=== PATIENT | female | born 1980 | race American Indian/Alaskan Native ===

== ENCOUNTER 2017-07-05 17:10 | Emergency (ER) | payer SELFPAY ==
[2017-07-05 17:30] VITALS: BP 138/57
== END 2017-07-05 20:35 | disposition left against medical advice (07) ==
LOC: ED 17:10
DX: R07.89 Other chest pain (principal); Z53.21 Procedure and treatment not carried out due to patient leaving prior to being seen by health care provider
CPT/HCPCS: 93005; 93010

== ENCOUNTER 2019-11-30 14:39 | Emergency (ER) | payer MEDICAID ==
[2019-11-30 15:05] VITALS: BP 149/89
[2019-11-30] MEDS ORDERED: ONDANSETRON 4 MG/2 ML INJ IV ONE (15:27)
[2019-11-30] MEDS ORDERED: SODIUM CHLORIDE 0.9% 1000 ML 1,000 ML IV ONE (15:27)
[2019-11-30] MEDS ORDERED: MORPHINE 4 MG/1 ML INJ IV ONE (15:27)
[2019-11-30 15:57] LABS: Basophils # (Auto) 0.1 K/mm3 (0.0-0.1); Basophils % (Auto) 0.7 % (0.0-1.8); Eosinophils # (Auto) 0.3 K/mm3 (0.0-0.4); Eosinophils % (Auto) 2.2 % (0.0-4.3); Hematocrit 36.1 % (30.3-42.9); Hemoglobin 11.4 gm/dl (10.1-14.3); Lymphocytes # (Auto) 2.4 K/mm3 (1.2-5.4); Lymphocytes % (Auto) 20.9 % (13.4-35.0); Mean Corpuscular HGB Conc 32 % (30-34); Mean Corpuscular Volume 86 fl (79-97); Monocytes # (Auto) 0.7 K/mm3 (0.0-0.8); Platelet Count 319 K/mm3 (140-440); Red Cell Distribution Width 14.8 % (13.2-15.2)
[2019-11-30 16:13] LABS: Alanine Aminotransferase 20 units/L (7-56); Albumin 3.5 g/dL (3.9-5); BUN/Creatinine Ratio 17; Blood Urea Nitrogen 12 mg/dL (7-17); Calcium 9.1 mg/dL (8.4-10.2); Hemolysis Index 3
[2019-11-30 16:58] LABS: Bacteria,Urine 1+ /HPF (Negative); Bilirubin,Urine NEG (Negative); Blood,Urine NEG (Negative); Color,Urine Yellow (Yellow); Mucus,Urine FEW /HPF; Protein,Urine <15 mg/dL mg/dL (Negative)
--- NOTE | 2019-11-30 17:05 | Emergency Department Report ---
ED Abdominal Pain HPI - General Chief Complaint: Abdominal Pain Stated Complaint: SOB/MID STOMACH PAIN Time Seen by Provider: 11/30/19 15:26 Source: patient Mode of arrival: Ambulatory Limitations: No Limitations - History of Present Illness Initial Comments: Patient is a 39-year-old female presents emergency room with complaints of upper abdominal pain that began earlier this morning. She states that she has associated nausea and had one episode of vomiting. She denies any diarrhea, fever, urinary symptoms, shortness of breath, chest pain, diaphoresis, radiation of the pain. She has a past medical history of hypertension. She denies any allergies to medications. She states her last menstrual cycle was last week. Severity scale (0 -10): 2 - Related Data Previous Rx's Medication Instructions Recorded Last Taken Type Digoxin 125 mcg PO DAILY #30 tablet 12/31/13 Unknown Rx Pnv95/Ferrous Fumarate/FA 1 each PO DAILY #30 tablet 12/31/13 Unknown Rx [ Multivitamins Tablet] Ferrous Sulfate [Feosol 325 MG tab] 325 mg PO BID #30 tablet 04/21/14 Unknown Rx HYDROcodone/APAP 5-325 [[place] 2 each PO Q6H PRN #20 tablet 04/21/14 Unknown Rx 5-325 mg TAB] Ibuprofen [Motrin 600 MG tab] 600 mg PO Q6H #30 tablet 04/21/14 Unknown Rx Nitrofurantoin Howell/M-Cryst 100 mg PO Q12HR #20 capsule 04/01/15 Unknown Rx [Macrobid CAP] Ondansetron [Zofran Odt] 4 mg PO Q4H #20 tab.rapdis 04/01/15 Unknown Rx Vit-Fe Fumar-FA [ 1 each PO QDAY #30 tablet 04/01/15 Unknown Rx Vitamin] Prednisone [predniSONE 10 mg 10 mg PO .TAPER #1 tab.ds.pk 08/27/19 Unknown Rx (6-Day Pack, 21 Tabs)] Famotidine [Pepcid] 20 mg PO BID #60 tablet 11/30/19 Unknown Rx Hyoscyamine Subl [Levsin Sl 0.125 0.125 mg SL Q6HR PRN #7 tab 11/30/19 Unknown Rx TAB] Allergies Allergy/AdvReac Type Severity Reaction Status Date / Time No Known Allergies Allergy Verified 04/20/14 09:11 ED Review of Systems ROS: Stated complaint: SOB/MID STOMACH PAIN Other details as noted in HPI Comment: All other systems reviewed and negative ED Past Medical Hx - Past Medical History Previous Medical History?: No Hx Hypertension: No Hx Congestive Heart Failure: No Hx Diabetes: No Hx Deep Vein Thrombosis: No Hx Renal Disease: No Hx Sickle Cell Disease: No Hx Seizures: No Hx Asthma: No Hx COPD: No Hx HIV: No - Surgical History Past Surgical History?: Yes Additional Surgical History: C section last year - Social History Smoking Status: Never Smoker Substance Use Type: None - Medications Home Medications: Home Medications Medication Instructions Recorded Confirmed Last Taken Type Digoxin 125 mcg PO DAILY #30 tablet 12/31/13 04/20/14 Unknown Rx Pnv95/Ferrous Fumarate/FA 1 each PO DAILY #30 tablet 12/31/13 04/20/14 Unknown Rx [ Multivitamins Tablet] Ferrous Sulfate [Feosol 325 MG tab] 325 mg PO BID #30 tablet 04/21/14 Unknown Rx HYDROcodone/APAP 5-325 [[place] 2 each PO Q6H PRN #20 tablet 04/21/14 Unknown Rx 5-325 mg TAB] Ibuprofen [Motrin 600 MG tab] 600 mg PO Q6H #30 tablet 04/21/14 Unknown Rx Nitrofurantoin Howell/M-Cryst 100 mg PO Q12HR #20 capsule 04/01/15 Unknown Rx [Macrobid CAP] Ondansetron [Zofran Odt] 4 mg PO Q4H #20 tab.rapdis 04/01/15 Unknown Rx Vit-Fe Fumar-FA [ 1 each PO QDAY #30 tablet 04/01/15 Unknown Rx Vitamin] Prednisone [predniSONE 10 mg 10 mg PO .TAPER #1 tab.ds.pk 08/27/19 Unknown Rx (6-Day Pack, 21 Tabs)] Famotidine [Pepcid] 20 mg PO BID #60 tablet 11/30/19 Unknown Rx Hyoscyamine Subl [Levsin Sl 0.125 0.125 mg SL Q6HR PRN #7 tab 11/30/19 Unknown Rx TAB] ED Physical Exam - General Limitations: No Limitations General appearance: alert, in no apparent distress - Head Head exam: Present: atraumatic, normocephalic - Eye Eye exam: Present: normal appearance - ENT ENT exam: Present: mucous membranes moist - Respiratory Respiratory exam: Present: normal lung sounds bilaterally. Absent: respiratory distress, wheezes, rales, rhonchi, stridor, chest wall tenderness, accessory muscle use, decreased breath sounds, prolonged expiratory - Cardiovascular Cardiovascular Exam: Present: regular rate, normal rhythm, normal heart sounds. Absent: systolic murmur, diastolic murmur, rubs, gallop - GI/Abdominal GI/Abdominal exam: Present: soft, tenderness (epigastric), normal bowel sounds, other (negative murphys sign, negative mcburneys point ttp, protuberant abdomen). Absent: distended, guarding, rebound, rigid - Neurological Exam Neurological exam: Present: alert, oriented X3 - Psychiatric Psychiatric exam: Present: normal affect, normal mood - Skin Skin exam: Present: warm, dry, intact ED Course Vital Signs 11/30/19 15:03 Temperature 98.8 F Pulse Rate 69 Respiratory 20 Rate Blood Pressure 149/89 O2 Sat by Pulse 97 Oximetry ED Medical Decision Making - Lab Data Result diagrams: 11/30/19 15:33 11/30/19 15:33 Lab Results 11/30/19 11/30/19 11/30/19 Range/Units 15:33 15:33 16:44 WBC 11.4 H (4.5-11.0) K/mm3 RBC 4.20 (3.65-5.03) M/mm3 Hgb 11.4 (10.1-14.3) gm/dl Hct 36.1 (30.3-42.9) % MCV 86 (79-97) fl MCH 27 L (28-32) pg MCHC 32 (30-34) % RDW 14.8 (13.2-15.2) % Plt Count 319 (140-440) K/mm3 Lymph % (Auto) 20.9 (13.4-35.0) % Howell % (Auto) 6.0 (0.0-7.3) % Eos % (Auto) 2.2 (0.0-4.3) % Baso % (Auto) 0.7 (0.0-1.8) % Lymph # 2.4 (1.2-5.4) K/mm3 Howell # 0.7 (0.0-0.8) K/mm3 Eos # 0.3 (0.0-0.4) K/mm3 Baso # 0.1 (0.0-0.1) K/mm3 Seg Neutrophils % 70.2 H (40.0-70.0) % Seg Neutrophils # 8.0 H (1.8-7.7) K/mm3 Sodium 135 L (137-145) mmol/L Potassium 4.0 (3.6-5.0) mmol/L Chloride 100.0 (98-107) mmol/L Carbon Dioxide 22 (22-30) mmol/L Anion Gap 17 mmol/L BUN 12 (7-17) mg/dL Creatinine 0.7 (0.7-1.2) mg/dL Estimated GFR > 60 ml/min BUN/Creatinine Ratio 17 % Glucose 102 H (65-100) mg/dL Calcium 9.1 (8.4-10.2) mg/dL Total Bilirubin 0.30 (0.1-1.2) mg/dL AST 35 (5-40) units/L ALT 20 (7-56) units/L Alkaline Phosphatase 101 (35-129) units/L Troponin T < 0.010 (0.00-0.029) ng/mL Total Protein 7.4 (6.3-8.2) g/dL Albumin 3.5 L (3.9-5) g/dL Albumin/Globulin Ratio 0.9 % Lipase 13 (13-60) units/L Urine Color Yellow (Yellow) Urine Turbidity Clear (Clear) Urine pH 5.0 (5.0-7.0) Ur Specific [place] 1.025 (1.003-1.030) Urine Protein <15 mg/dl (Negative) mg/dL Urine Glucose (UA) Neg (Negative) mg/dL Urine Ketones Neg (Negative) mg/dL Urine Blood Neg (Negative) Urine Nitrite Neg (Negative) Urine Bilirubin Neg (Negative) Urine Urobilinogen 2.0 (<2.0) mg/dL Ur Leukocyte Esterase Tr (Negative) Urine WBC (Auto) 2.0 (0.0-6.0) /HPF Urine RBC (Auto) 2.0 (0.0-6.0) /HPF U Epithel Cells (Auto) 3.0 (0-13.0) /HPF Urine Bacteria (Auto) 1+ (Negative) /HPF Urine Mucus Few /HPF - EKG Data EKG shows normal: sinus rhythm, axis, intervals, QRS complexes, ST-T waves Rate: normal - Medical Decision Making Patient is a 39-year-old female presents emergency room with complaints of upper abdominal pain that began earlier this morning. She states that she has associated nausea and had one episode of vomiting. She denies any diarrhea, fever, urinary symptoms, shortness of breath, chest pain, diaphoresis, radiation of the pain. She has a past medical history of hypertension. She denies any allergies to medications. She states her last menstrual cycle was last week. Vitals are normal. On exam patient has epigastric abdominal tenderness to palpation, no guarding, no rebound, no rigidity, no peritoneal signs, negative Gaines's and McBurney's point tenderness. Labs are stable. UA without evidence of UTI. EKG within normal limits. Troponin is negative. 1 L IV fluids, morphine, Zofran given. Patient was feeling much better, ambulating in the emergency department, patient was requesting to go home. Given prescription for Levsin and Pepcid. Advised patient Please take medication as prescribed. Increase your water intake. Follow-up with your primary care doctor. Follow-up with a GI doctor. Return to the emergency room immediately for any new or worsening symptoms. Discussed with patient to return immediately for worsening abdominal pain, fevers, unable to tolerate by mouth intake, etc. - Differential Diagnosis PUD, GERD, gas pain, ACS, cholecystitis, cholelithiasis, obstruction Critical care attestation.: If time is entered above; I have spent that time in minutes in the direct care of this critically ill patient, excluding procedure time. ED Disposition Clinical Impression: Abdominal pain Qualifiers: Abdominal location: epigastric Qualified Code(s): R10.13 - Epigastric pain Nausea & vomiting Qualifiers: Vomiting type: unspecified Vomiting Intractability: non-intractable Qualified Code(s): R11.2 - Nausea with vomiting, unspecified Disposition: DC-01 TO HOME OR SELFCARE Is pt being admited?: No Does the pt Need Aspirin: No Condition: Stable Instructions: Abdominal Pain (ED) Additional Instructions: Please take medication as prescribed. Increase your water intake. Follow-up with your primary care doctor. Follow-up with a GI doctor. Return to the emergency room immediately for any new or worsening symptoms. Prescriptions: Hyoscyamine Subl [Levsin Sl 0.125 TAB] 0.125 mg SL Q6HR PRN #7 tab PRN Reason: abdominal pain Famotidine [Pepcid] 20 mg PO BID #60 tablet Referrals: DANAE HENRIQUEZ MD [Staff Physician] - 3-5 Days [facility] [Provider Group] - 3-5 Days [facility] [Provider Group] - 3-5 Days Time of Disposition: 17:04 Print Language: [place]
== END 2019-11-30 17:11 | disposition home or self-care (01) ==
LOC: ED 14:39
DX: R10.13 Epigastric pain (principal); R11.2 Nausea with vomiting, unspecified; Z79.899 Other long term (current) drug therapy; Z98.890 Other specified postprocedural states
CPT/HCPCS: 36415; 80053; 81001; 83690; 84484; 85025; 93005; 93010; 96361; 96374; 96375; 99283; J2270; J2405; J7030

== ENCOUNTER 2021-04-04 09:12 | Emergency (ER) | payer MEDICAID ==
[2021-04-04] MEDS ORDERED: ACETAMINOPHEN 500 MG TAB PO ONE (10:39)
[2021-04-04] MEDS ORDERED: BENZONATATE 100 MG CAP PO ONE (10:39)
--- NOTE | 2021-04-04 10:45 | Emergency Department Report ---
- General Chief Complaint: Dyspnea/Respdistress Stated Complaint: CHILLS,SOB,THROAT,FEVER Time Seen by Provider: 04/04/21 10:25 Source: patient Mode of arrival: Ambulatory Limitations: No Limitations - History of Present Illness Initial Comments: This is a 40-year-old female nontoxic, well nourished in appearance, no acute signs of distress presents to the ED with c/o of productive cough, fever, chills, body aches, SOB, rhinorrhea, nasal congestion x2 days. Stated has slight shortness of breath during exertion only. Patient stated she received first dose of Covid vaccine 2 weeks ago. Patient describes productive cough as yellow mucus production. Patient denies any sick contacts. Patient denies any recent travels, long car, recent hospital stays. Patient denies any calf pain or calf tenderness. Patient denies any chest pain, nausea, vomiting, hemoptysis, numbness, tingling, headache or stiff neck. Patient denies any drug allergies. Past medical history hypertension which she sees primary care doctor and takes medication as she stated. MD Complaint: fever, cough, sore throat, rhinorrhea, nasal congestion -: days(s) Severity: mild Severity scale (0 -10): 3 Quality: aching Consistency: constant Improves With: nothing Worsens With: nothing Associated Symptoms: fever, chills, rhinorrhea, nasal congestion, sore throat, cough, shortness of breath. denies: myalgias, diaphoresis, headache, stiff neck, chest pain, abdominal pain, nausea, vomiting, diarrhea, dysuria, rash, confusion, right sweats, epistaxis, hoarseness, ear pain Treatments Prior to Arrival: none - Related Data Previous Rx's Medication Instructions Recorded Last Taken Type Digoxin 125 mcg PO DAILY #30 tablet 12/31/13 Unknown Rx Pnv95/Ferrous Fumarate/FA 1 each PO DAILY #30 tablet 12/31/13 Unknown Rx [ Multivitamins Tablet] Ferrous Sulfate [Feosol 325 MG tab] 325 mg PO BID #30 tablet 04/21/14 Unknown Rx HYDROcodone/APAP 5-325 [[place] 2 each PO Q6H PRN #20 tablet 04/21/14 Unknown Rx 5-325 mg TAB] Ibuprofen [Motrin 600 MG tab] 600 mg PO Q6H #30 tablet 04/21/14 Unknown Rx Nitrofurantoin Frio/M-Cryst 100 mg PO Q12HR #20 capsule 04/01/15 Unknown Rx [Macrobid CAP] Ondansetron [Zofran Odt] 4 mg PO Q4H #20 tab.rapdis 04/01/15 Unknown Rx Vit-Fe Fumar-FA [ 1 each PO QDAY #30 tablet 04/01/15 Unknown Rx Vitamin] Prednisone [predniSONE 10 mg 10 mg PO .TAPER #1 tab.ds.pk 08/27/19 Unknown Rx (6-Day Pack, 21 Tabs)] Famotidine [Pepcid] 20 mg PO BID #60 tablet 11/30/19 Unknown Rx Hyoscyamine Subl [Levsin Sl 0.125 0.125 mg SL Q6HR PRN #7 tab 11/30/19 Unknown Rx TAB] Acetaminophen [Acetaminophen 8 650 mg PO Q8H PRN #20 tablet.er 04/04/21 Unknown Rx Hour] Azithromycin [Zithromax Z-JAVIER] 250 mg PO DAILY #6 tablet 04/04/21 Unknown Rx Benzonatate [Tessalon Perles] 100 mg PO Q8HR PRN #12 capsule 04/04/21 Unknown Rx Allergies Allergy/AdvReac Type Severity Reaction Status Date / Time No Known Allergies Allergy Verified 04/20/14 09:11 ED Review of Systems ROS: Stated complaint: CHILLS,SOB,THROAT,FEVER Other details as noted in HPI Comment: All other systems reviewed and negative Constitutional: chills, fever Eyes: denies: eye pain, eye discharge, vision change ENT: throat pain, congestion. denies: ear pain, dental pain, hearing loss, epistaxis Respiratory: cough, shortness of breath. denies: wheezing Cardiovascular: denies: chest pain, palpitations, dyspnea on exertion, orthopnea, edema, syncope, paroxysmal nocturnal dyspnea Endocrine: no symptoms reported Gastrointestinal: denies: abdominal pain, nausea, diarrhea Genitourinary: denies: urgency, dysuria, discharge Musculoskeletal: denies: back pain, joint swelling, arthralgia Skin: denies: rash, lesions Neurological: denies: headache, weakness, paresthesias Psychiatric: denies: anxiety, depression Hematological/Lymphatic: denies: easy bleeding, easy bruising ED Past Medical Hx - Past Medical History Previous Medical History?: Yes Hx Hypertension: Yes Hx Congestive Heart Failure: No Hx Diabetes: No Hx Deep Vein Thrombosis: No Hx Renal Disease: No Hx Sickle Cell Disease: No Hx Seizures: No Hx Asthma: No Hx COPD: No Hx HIV: No - Surgical History Past Surgical History?: Yes Additional Surgical History: C section last year - Social History Smoking Status: Never Smoker Substance Use Type: None - Medications Home Medications: Home Medications Medication Instructions Recorded Confirmed Last Taken Type Digoxin 125 mcg PO DAILY #30 tablet 12/31/13 04/20/14 Unknown Rx Pnv95/Ferrous Fumarate/FA 1 each PO DAILY #30 tablet 12/31/13 04/20/14 Unknown Rx [ Multivitamins Tablet] Ferrous Sulfate [Feosol 325 MG tab] 325 mg PO BID #30 tablet 04/21/14 Unknown Rx HYDROcodone/APAP 5-325 [[place] 2 each PO Q6H PRN #20 tablet 04/21/14 Unknown Rx 5-325 mg TAB] Ibuprofen [Motrin 600 MG tab] 600 mg PO Q6H #30 tablet 04/21/14 Unknown Rx Nitrofurantoin Frio/M-Cryst 100 mg PO Q12HR #20 capsule 04/01/15 Unknown Rx [Macrobid CAP] Ondansetron [Zofran Odt] 4 mg PO Q4H #20 tab.rapdis 04/01/15 Unknown Rx Vit-Fe Fumar-FA [ 1 each PO QDAY #30 tablet 04/01/15 Unknown Rx Vitamin] Prednisone [predniSONE 10 mg 10 mg PO .TAPER #1 tab.ds.pk 08/27/19 Unknown Rx (6-Day Pack, 21 Tabs)] Famotidine [Pepcid] 20 mg PO BID #60 tablet 11/30/19 Unknown Rx Hyoscyamine Subl [Levsin Sl 0.125 0.125 mg SL Q6HR PRN #7 tab 11/30/19 Unknown Rx TAB] Acetaminophen [Acetaminophen 8 650 mg PO Q8H PRN #20 tablet.er 04/04/21 Unknown Rx Hour] Azithromycin [Zithromax Z-JAVIER] 250 mg PO DAILY #6 tablet 04/04/21 Unknown Rx Benzonatate [Tessalon Perles] 100 mg PO Q8HR PRN #12 capsule 04/04/21 Unknown Rx ED Physical Exam - General Limitations: No Limitations General appearance: alert, in no apparent distress - Head Head exam: Present: atraumatic, normocephalic - Eye Eye exam: Present: normal appearance - Expanded ENT Exam Expanded Ear exam: Present: normal external inspection Mouth exam: Present: normal external inspection, tongue normal. Absent: drooling, trismus, muffled voice Teeth exam: Present: normal inspection Throat exam: Positive: tonsillar erythema, other (uvula midline). Negative: tonsillomegaly, tonsillar exudate, R peritonsillar mass, L peritonsillar mass - Neck Neck exam: Present: normal inspection, full ROM. Absent: tenderness, meningismus, lymphadenopathy - Respiratory Respiratory exam: Present: normal lung sounds bilaterally. Absent: respiratory distress, wheezes, rales, rhonchi, stridor, chest wall tenderness, accessory muscle use, decreased breath sounds, prolonged expiratory - Cardiovascular Cardiovascular Exam: Present: regular rate, normal rhythm, normal heart sounds. Absent: bradycardia, tachycardia, irregular rhythm, systolic murmur, diastolic murmur, rubs, gallop - GI/Abdominal GI/Abdominal exam: Present: soft. Absent: distended, tenderness - Extremities Exam Extremities exam: Present: normal inspection, full ROM - Back Exam Back exam: Present: normal inspection, full ROM. Absent: tenderness, CVA tenderness (R), CVA tenderness (L), muscle spasm, paraspinal tenderness, vertebral tenderness, rash noted - Neurological Exam Neurological exam: Present: alert, oriented X3, normal gait - Psychiatric Psychiatric exam: Present: normal affect, normal mood - Skin Skin exam: Present: warm, dry, intact, normal color. Absent: rash ED Course Vital Signs 04/04/21 04/04/21 04/04/21 09:39 11:48 14:12 Temperature 99.8 F H 99.3 F Pulse Rate 88 87 Respiratory 18 16 18 Rate Blood Pressure 170/110 143/86 [Right] O2 Sat by Pulse 96 97 Oximetry - Reevaluation(s) Reevaluation #1: 04/04/21 10:45 Patient is speaking in full sentences with no signs of distress noted. ED Medical Decision Making - Lab Data Result diagrams: 04/04/21 10:27 04/04/21 10:27 Lab Results 04/04/21 04/04/21 04/04/21 Range/Units 10:27 10:27 10:27 WBC 6.8 (4.5-11.0) K/mm3 RBC 4.49 (3.65-5.03) M/mm3 Hgb 12.2 (10.1-14.3) gm/dl Hct 37.6 (30.3-42.9) % MCV 84 (79-97) fl MCH 27 L (28-32) pg MCHC 32 (30-34) % RDW 16.0 H (13.2-15.2) % Plt Count 313 (140-440) K/mm3 Lymph % (Auto) 19.0 (13.4-35.0) % Frio % (Auto) 12.7 H (0.0-7.3) % Eos % (Auto) 1.2 (0.0-4.3) % Baso % (Auto) 1.3 (0.0-1.8) % Lymph # (Auto) 1.3 (1.2-5.4) K/mm3 Frio # (Auto) 0.9 H (0.0-0.8) K/mm3 Eos # (Auto) 0.1 (0.0-0.4) K/mm3 Baso # (Auto) 0.1 (0.0-0.1) K/mm3 Seg Neutrophils % 65.8 (40.0-70.0) % Seg Neutrophils # 4.5 (1.8-7.7) K/mm3 PT 14.7 (12.2-14.9) Sec. INR 1.10 (0.87-1.13) APTT 29.3 (24.2-36.6) Sec. Sodium (137-145) mmol/L Potassium (3.6-5.0) mmol/L Chloride (98-107) mmol/L Carbon Dioxide (22-30) mmol/L Anion Gap mmol/L BUN (7-17) mg/dL Creatinine (0.6-1.2) mg/dL Estimated GFR ml/min BUN/Creatinine Ratio % Glucose (65-100) mg/dL Calcium (8.4-10.2) mg/dL Total Bilirubin (0.1-1.2) mg/dL AST (5-40) units/L ALT (7-56) units/L Alkaline Phosphatase (35-129) units/L Troponin T (0.00-0.029) ng/mL Total Protein (6.3-8.2) g/dL Albumin (3.9-5) g/dL Albumin/Globulin Ratio % HCG, Qual Negative (Negative) 04/04/21 Range/Units 10:27 WBC (4.5-11.0) K/mm3 RBC (3.65-5.03) M/mm3 Hgb (10.1-14.3) gm/dl Hct (30.3-42.9) % MCV (79-97) fl MCH (28-32) pg MCHC (30-34) % RDW (13.2-15.2) % Plt Count (140-440) K/mm3 Lymph % (Auto) (13.4-35.0) % Frio % (Auto) (0.0-7.3) % Eos % (Auto) (0.0-4.3) % Baso % (Auto) (0.0-1.8) % Lymph # (Auto) (1.2-5.4) K/mm3 Frio # (Auto) (0.0-0.8) K/mm3 Eos # (Auto) (0.0-0.4) K/mm3 Baso # (Auto) (0.0-0.1) K/mm3 Seg Neutrophils % (40.0-70.0) % Seg Neutrophils # (1.8-7.7) K/mm3 PT (12.2-14.9) Sec. INR (0.87-1.13) APTT (24.2-36.6) Sec. Sodium 136 L (137-145) mmol/L Potassium 4.0 (3.6-5.0) mmol/L Chloride 100.1 (98-107) mmol/L Carbon Dioxide 26 (22-30) mmol/L Anion Gap 14 mmol/L BUN 9 (7-17) mg/dL Creatinine 0.7 (0.6-1.2) mg/dL Estimated GFR > 60 ml/min BUN/Creatinine Ratio 13 % Glucose 95 (65-100) mg/dL Calcium 9.1 (8.4-10.2) mg/dL Total Bilirubin 0.30 (0.1-1.2) mg/dL AST 23 (5-40) units/L ALT 20 (7-56) units/L Alkaline Phosphatase 83 (35-129) units/L Troponin T < 0.010 (0.00-0.029) ng/mL Total Protein 7.5 (6.3-8.2) g/dL Albumin 3.8 L (3.9-5) g/dL Albumin/Globulin Ratio 1.0 % HCG, Qual (Negative) Lab Results 04/04/21 04/04/21 04/04/21 Range/Units 10:27 10:27 10:27 WBC 6.8 (4.5-11.0) K/mm3 RBC 4.49 (3.65-5.03) M/mm3 Hgb 12.2 (10.1-14.3) gm/dl Hct 37.6 (30.3-42.9) % MCV 84 (79-97) fl MCH 27 L (28-32) pg MCHC 32 (30-34) % RDW 16.0 H (13.2-15.2) % Plt Count 313 (140-440) K/mm3 Lymph % (Auto) 19.0 (13.4-35.0) % Frio % (Auto) 12.7 H (0.0-7.3) % Eos % (Auto) 1.2 (0.0-4.3) % Baso % (Auto) 1.3 (0.0-1.8) % Lymph # (Auto) 1.3 (1.2-5.4) K/mm3 Frio # (Auto) 0.9 H (0.0-0.8) K/mm3 Eos # (Auto) 0.1 (0.0-0.4) K/mm3 Baso # (Auto) 0.1 (0.0-0.1) K/mm3 Seg Neutrophils % 65.8 (40.0-70.0) % Seg Neutrophils # 4.5 (1.8-7.7) K/mm3 PT 14.7 (12.2-14.9) Sec. INR 1.10 (0.87-1.13) APTT 29.3 (24.2-36.6) Sec. Sodium (137-145) mmol/L Potassium (3.6-5.0) mmol/L Chloride (98-107) mmol/L Carbon Dioxide (22-30) mmol/L Anion Gap mmol/L BUN (7-17) mg/dL Creatinine (0.6-1.2) mg/dL Estimated GFR ml/min BUN/Creatinine Ratio % Glucose (65-100) mg/dL Calcium (8.4-10.2) mg/dL Total Bilirubin (0.1-1.2) mg/dL AST (5-40) units/L ALT (7-56) units/L Alkaline Phosphatase (35-129) units/L Troponin T (0.00-0.029) ng/mL Total Protein (6.3-8.2) g/dL Albumin (3.9-5) g/dL Albumin/Globulin Ratio % HCG, Qual Negative (Negative) Group A Strep Rapid (Negative) 04/04/21 04/04/21 Range/Units 10:27 Unknown WBC (4.5-11.0) K/mm3 RBC (3.65-5.03) M/mm3 Hgb (10.1-14.3) gm/dl Hct (30.3-42.9) % MCV (79-97) fl MCH (28-32) pg MCHC (30-34) % RDW (13.2-15.2) % Plt Count (140-440) K/mm3 Lymph % (Auto) (13.4-35.0) % Frio % (Auto) (0.0-7.3) % Eos % (Auto) (0.0-4.3) % Baso % (Auto) (0.0-1.8) % Lymph # (Auto) (1.2-5.4) K/mm3 Frio # (Auto) (0.0-0.8) K/mm3 Eos # (Auto) (0.0-0.4) K/mm3 Baso # (Auto) (0.0-0.1) K/mm3 Seg Neutrophils % (40.0-70.0) % Seg Neutrophils # (1.8-7.7) K/mm3 PT (12.2-14.9) Sec. INR (0.87-1.13) APTT (24.2-36.6) Sec. Sodium 136 L (137-145) mmol/L Potassium 4.0 (3.6-5.0) mmol/L Chloride 100.1 (98-107) mmol/L Carbon Dioxide 26 (22-30) mmol/L Anion Gap 14 mmol/L BUN 9 (7-17) mg/dL Creatinine 0.7 (0.6-1.2) mg/dL Estimated GFR > 60 ml/min BUN/Creatinine Ratio 13 % Glucose 95 (65-100) mg/dL Calcium 9.1 (8.4-10.2) mg/dL Total Bilirubin 0.30 (0.1-1.2) mg/dL AST 23 (5-40) units/L ALT 20 (7-56) units/L Alkaline Phosphatase 83 (35-129) units/L Troponin T < 0.010 (0.00-0.029) ng/mL Total Protein 7.5 (6.3-8.2) g/dL Albumin 3.8 L (3.9-5) g/dL Albumin/Globulin Ratio 1.0 % HCG, Qual (Negative) Group A Strep Rapid Negative (Negative) - EKG Data 04/04/21 12:08 Normal sinus rhythm at [address] or T wave abnormalities. Reviewed and signed by MD. - Radiology Data CHEST 1 VIEW INDICATION: Chest Pain. COMPARISON: None FINDINGS: Support devices: None. Heart: Within normal limits. Lungs/Pleura: No acute air space or interstitial disease. Additional findings: None. IMPRESSION: No acute findings. Signer Name: Moises Hatch Jr, MD Signed: 04/04/2021 11:25 AM Workstation Name: [id number] - Medical Decision Making This is a 40-year-old female that presents with suspected Covid with pneumonia. Patient is stable and was examined by me. Chest x-ray has been obtained and dictated by radiologist with normal exam, but I have reviewed the chest x-ray and my impression that patient be have slight bilateral pneumonia. Patient is notified of x-ray results with no questions noted. Patient does meet clinical concerns of COVID-19 and patient was instructed and educated on signs and sy mptoms and to self quarantine and seek medical attention as soon as possible if symptoms worse. I will treat patient with Zpak. Patient was instructed to increase hydration, rest and take Tylenol for fever episodes. Patient received Tylenol and tesslone perrls in the ED. Vitals stable. Patient is nonfebrile and normal heart rate. Patient was instructed Follow-up with a primary care doctor in 3-5 days or if symptoms worsen and continue return to emergency room as soon as possible. At time time of discharge, the patient does not seem toxic or ill in appearance. No acute signs of distress noted. Patient agrees to discharge treatment plan of care. No further questions noted by the patient. Critical care attestation.: If time is entered above; I have spent that time in minutes in the direct care of this critically ill patient, excluding procedure time. ED Disposition Clinical Impression: Suspected COVID-19 virus infection PNA (pneumonia) Qualifiers: Pneumonia type: due to unspecified organism Laterality: bilateral Lung loc ation: lower lobe of lung Qualified Code(s): J18.9 - Pneumonia, unspecified organism Disposition: TO HOME OR SELFCARE Is pt being admited?: No Does the pt Need Aspirin: No Condition: Stable Instructions: Community-Acquired Pneumonia, Adult, Bacterial Pneumonia (ED) Additional Instructions: Follow-up with a primary care doctor in 3-5 days or if symptoms worsen and continue return to emergency room as soon as possible. As educated and instructed to you must self quarantine yourself and people that you have been in close contact with similar symptoms for the next 14 days. Please see your nearest health department or primary care doctor that you are referred to for COVID testing. Increased rest, hydration, and take Tylenol as prescribed for fever episode. Prescriptions: Acetaminophen [Acetaminophen 8 Hour] 650 mg PO Q8H PRN #20 tablet.er PRN Reason: pain/fever Benzonatate [Tessalon Perles] 100 mg PO Q8HR PRN #12 capsule PRN Reason: Cough Azithromycin [Zithromax Z-JAVIER] 250 mg PO DAILY #6 tablet Referrals: PRIMARY MD KATERYNA [Primary Care Provider] - 3-5 Days DANAE HENRIQUEZ MD [Staff Physician] - 3-5 Days Forms: Work/School Release Form(ED) Time of Disposition: 14:06
[2021-04-04 11:28] LABS: Alanine Aminotransferase 20 units/L (7-56); Albumin 3.8 g/dL (3.9-5); Blood Urea Nitrogen 9 mg/dL (7-17); Calcium 9.1 mg/dL (8.4-10.2); Hemolysis Index 6
[2021-04-04 11:29] LABS: Basophils # (Auto) 0.1 K/mm3 (0.0-0.1); Basophils % (Auto) 1.3 % (0.0-1.8); Eosinophils # (Auto) 0.1 K/mm3 (0.0-0.4); Eosinophils % (Auto) 1.2 % (0.0-4.3); Hematocrit 37.6 % (30.3-42.9); Hemoglobin 12.2 gm/dl (10.1-14.3); Lymphocytes # (Auto) 1.3 K/mm3 (1.2-5.4); Mean Corpuscular HGB Conc 32 % (30-34); Mean Corpuscular Volume 84 fl (79-97); Monocytes # (Auto) 0.9 K/mm3 (0.0-0.8); Monocytes % (Auto) 12.7 % (0.0-7.3); Platelet Count 313 K/mm3 (140-440); Red Blood Count 4.49 M/mm3 (3.65-5.03)
[2021-04-04 11:35] LABS: BUN/Creatinine Ratio 13
[2021-04-04 11:55] LABS: INR 1.1 (0.87-1.13)
[2021-04-04 11:56] LABS: Partial Thromboplastin Time 29.3 Sec. (24.2-36.6)
--- NOTE | 2021-04-04 12:30 | XRay Report ---
CHEST 1 VIEW INDICATION: Chest Pain. COMPARISON: None FINDINGS: Support devices: None. Heart: Within normal limits. Lungs/Pleura: No acute air space or interstitial disease. Additional findings: None. IMPRESSION: No acute findings. Signer Name: Moises Hatch Jr, MD Signed: 04/04/2021 12:25 PM Workstation Name: [id number]
[2021-04-04 14:18] VITALS: BP 143/86
--- NOTE | 2021-04-05 10:09 | Electrocardiograph Report ---
[facility] Test Date: 2021-04-04 Test Time: 10:32:55 Pat Name: JUAN AVERY Department: Room: Gender: F Mechanic'S Assistant: ELENA : 1980 Requested By: MARIANO ZHAO Order Number: [id number] Reading MD: Bro Harvey Measurements Intervals [place] Rate: 99 P: 14 MS: 152 QRS: 46 QRSD: 83 T: 33 QT: 340 QTc: 437 Interpretive Statements Sinus rhythm No previous ECG available for comparison Electronically Signed On 04-05-2021 10:08:36 EDT by Bro Harvey
== END 2021-04-04 14:40 | disposition home or self-care (01) ==
LOC: ED 09:12
DX: J18.9 Pneumonia, unspecified organism (principal); Z20.822 Contact with and (suspected) exposure to COVID-19; R09.81 Nasal congestion; I10 Essential (primary) hypertension
CPT/HCPCS: 36415; 71045; 80053; 84484; 84703; 85025; 85610; 85730; 87116; 87430; 93005; 99284

== ENCOUNTER 2021-11-16 21:46 | Emergency (ER) | payer MEDICAID ==
[2021-11-16] MEDS ORDERED: ONDANSETRON 4 MG/2 ML INJ IV ONE (22:26)
[2021-11-16] MEDS ORDERED: HYOSCYAMINE SUBL 0.125 MG TAB SL ONE (22:37)
[2021-11-16] MEDS ORDERED: ONDANSETRON 4 MG ODT TAB PO ONE (22:37)
--- NOTE | 2021-11-16 23:36 | Emergency Department Report ---
ED N/V/D HPI - General Chief complaint: Abdominal Pain Stated complaint: ABD PAIN,VOMITING BLOOD Time Seen by Provider: 11/16/21 23:22 Source: patient Mode of arrival: Ambulatory Limitations: No Limitations - History of Present Illness Initial comments: 41-year-old obese Ethiopian female with no reported past medical history presents emerged department complaining of having diffuse abdominal cramping and pain with nausea and vomiting off and on since this morning after eating a breakfast sandwich from [facility]. She is a strong suspicion for having had developed food poisoning in 6 medication help to mitigate her symptoms in emergency department. She reports no hemoptysis or hematemesis hematochezia no fever and no no hematuria or dysuria. MD complaint: nausea, vomiting, abdominal pain -: Gradual, days(s) (1) Associated Abdominal Pain: No Location: diffuse Radiation: none - Related Data Previous Rx's Medication Instructions Recorded Last Taken Type Digoxin 125 mcg PO DAILY #30 tablet 12/31/13 Unknown Rx Pnv95/Ferrous Fumarate/FA 1 each PO DAILY #30 tablet 12/31/13 Unknown Rx [ Multivitamins Tablet] Ferrous Sulfate [Feosol 325 MG tab] 325 mg PO BID #30 tablet 04/21/14 Unknown Rx HYDROcodone/APAP 5-325 [[place] 2 each PO Q6H PRN #20 tablet 04/21/14 Unknown Rx 5-325 mg TAB] Ibuprofen [Motrin 600 MG tab] 600 mg PO Q6H #30 tablet 04/21/14 Unknown Rx Nitrofurantoin [place]/M-Cryst 100 mg PO Q12HR #20 capsule 04/01/15 Unknown Rx [Macrobid CAP] Ondansetron [Zofran Odt] 4 mg PO Q4H #20 tab.rapdis 04/01/15 Unknown Rx Vit-Fe Fumar-FA [ 1 each PO QDAY #30 tablet 04/01/15 Unknown Rx Vitamin] Prednisone [predniSONE 10 mg 10 mg PO .TAPER #1 tab.ds.pk 08/27/19 Unknown Rx (6-Day Pack, 21 Tabs)] Famotidine [Pepcid] 20 mg PO BID #60 tablet 11/30/19 Unknown Rx Hyoscyamine Subl [Levsin Sl 0.125 0.125 mg SL Q6HR PRN #7 tab 11/30/19 Unknown Rx TAB] Acetaminophen [Acetaminophen 8 650 mg PO Q8H PRN #20 tablet.er 04/04/21 Unknown Rx Hour] Azithromycin [Zithromax Z-JAVIER] 250 mg PO DAILY #6 tablet 04/04/21 Unknown Rx Benzonatate [Tessalon Perles] 100 mg PO Q8HR PRN #12 capsule 04/04/21 Unknown Rx Allergies Allergy/AdvReac Type Severity Reaction Status Date / Time No Known Allergies Allergy Verified 04/20/14 09:11 ED Review of Systems ROS: Stated complaint: ABD PAIN,VOMITING BLOOD Other details as noted in HPI Comment: All other systems reviewed and negative ED Past Medical Hx - Past Medical History Hx Hypertension: Yes Hx Congestive Heart Failure: No Hx Diabetes: No Hx Deep Vein Thrombosis: No Hx Renal Disease: No Hx Sickle Cell Disease: No Hx Seizures: No Hx Asthma: No Hx COPD: No Hx HIV: No - Surgical History Additional Surgical History: C section last year - Social History Smoking Status: Never Smoker Substance Use Type: None - Medications Home Medications: Home Medications Medication Instructions Recorded Confirmed Last Taken Type Digoxin 125 mcg PO DAILY #30 tablet 12/31/13 04/20/14 Unknown Rx Pnv95/Ferrous Fumarate/FA 1 each PO DAILY #30 tablet 12/31/13 04/20/14 Unknown Rx [ Multivitamins Tablet] Ferrous Sulfate [Feosol 325 MG tab] 325 mg PO BID #30 tablet 04/21/14 Unknown Rx HYDROcodone/APAP 5-325 [[place] 2 each PO Q6H PRN #20 tablet 04/21/14 Unknown Rx 5-325 mg TAB] Ibuprofen [Motrin 600 MG tab] 600 mg PO Q6H #30 tablet 04/21/14 Unknown Rx Nitrofurantoin [place]/M-Cryst 100 mg PO Q12HR #20 capsule 04/01/15 Unknown Rx [Macrobid CAP] Ondansetron [Zofran Odt] 4 mg PO Q4H #20 tab.rapdis 04/01/15 Unknown Rx Vit-Fe Fumar-FA [ 1 each PO QDAY #30 tablet 04/01/15 Unknown Rx Vitamin] Prednisone [predniSONE 10 mg 10 mg PO .TAPER #1 tab.ds.pk 08/27/19 Unknown Rx (6-Day Pack, 21 Tabs)] Famotidine [Pepcid] 20 mg PO BID #60 tablet 11/30/19 Unknown Rx Hyoscyamine Subl [Levsin Sl 0.125 0.125 mg SL Q6HR PRN #7 tab 11/30/19 Unknown Rx TAB] Acetaminophen [Acetaminophen 8 650 mg PO Q8H PRN #20 tablet.er 04/04/21 Unknown Rx Hour] Azithromycin [Zithromax Z-JAVIER] 250 mg PO DAILY #6 tablet 04/04/21 Unknown Rx Benzonatate [Tessalon Perles] 100 mg PO Q8HR PRN #12 capsule 04/04/21 Unknown Rx ED Physical Exam - General Limitations: No Limitations General appearance: alert, in no apparent distress - Head Head exam: Present: atraumatic, normocephalic - Eye Eye exam: Present: normal appearance, PERRL, EOMI Pupils: Present: normal accommodation - ENT ENT exam: Present: normal exam, mucous membranes moist - Neck Neck exam: Present: normal inspection, full ROM - Respiratory Respiratory exam: Present: normal lung sounds bilaterally. Absent: respiratory distress, wheezes, rales, rhonchi - Cardiovascular Cardiovascular Exam: Present: regular rate, normal rhythm. Absent: systolic murmur, diastolic murmur, rubs, gallop - GI/Abdominal GI/Abdominal exam: Present: soft, tenderness (Tenderness change in the epigastric region in the central abdomen), normal bowel sounds - Extremities Exam Extremities exam: Present: normal inspection - Back Exam Back exam: Present: normal inspection - Neurological Exam Neurological exam: Present: alert, oriented X3 - Psychiatric Psychiatric exam: Present: normal affect, normal mood - Skin Skin exam: Present: warm, dry, intact, normal color. Absent: rash ED Medical Decision Making - Radiology Data Radiology results: report reviewed The patient is oriented to person, place, and time, has the capacity to make decisions regarding the medical care offered. The patient speaks coherently and exhibits no evidence of having an altered level of consciousness or alcohol or drug intoxication to a point that would impair judgment. They respond knowingly to questions about recommended treatment and alternate treatments including no f urther testing or treatment; participate in diagnostic and treatment decisions by means of rational thought processes; and understand the items of minimum basic medical treatment information with respect to that treatment (the nature and seriousness of the illness, the nature of the treatment, the probable degree and duration of any benefits and risks of any medical intervention that is being recommended, and the consequences of lack of treatment, and the nature, risks, and benefits of any reasonable alternatives). I have reviewed the relevant issues with the patient. They are aware of the s uspected diagnosis suggested by screening exam, gastroenteritis, based upon the initiated medical screening exam. The patient acknowledges understanding of the reasons for recommendations regarding medical treatment, medical testing, and further monitoring and observation. The recommended medical care being refused has been discussed with the patient and is labs, follow-up physical examination, possible imaging. The risks of refusing recommended care that were disclosed and acknowledged by the patient are loss of current lifestyle, permanent mental impairment, and . The patient understands the relevant information of the nature of their medical condition, as well as the risks, benefits, and treatment alternatives (including non-treatment), consequences of refusing care, and can competently communicate a rational explanation about their choice of care options. [Discharge instructions were provided to the patient.] The patient understands they are welcome to return to the hospital at any time to receive the recommended care or any other care at any time, regardless of their ability to pay for such care. Critical care attestation.: If time is entered above; I have spent that time in minutes in the direct care of this critically ill patient, excluding procedure time. ED Disposition Clinical Impression: Abdominal pain, Nausea and vomiting Disposition: 07 LEFT AGAINST MEDICAL ADVICE Is pt being admited?: No Does the pt Need Aspirin: No Condition: Stable Instructions: Abdominal Pain (ED)
== END 2021-11-16 23:50 | disposition left against medical advice (07) ==
LOC: ED 21:46
DX: R10.9 Unspecified abdominal pain (principal); R11.2 Nausea with vomiting, unspecified; I10 Essential (primary) hypertension
CPT/HCPCS: 99282; J2405